=== PATIENT | male | born 1985 | race Two or more races ===

== ENCOUNTER 2021-09-26 09:15 | Emergency (ER) | payer BC, OTHER ==
[~2021-09-26] VITALS: Ht 170.2 cm; Wt 113.4 kg
[2021-09-26 14:14] VITALS: BP 110/72
[2021-09-26] MEDS ORDERED: CYCL-837 PO (14:25)
[2021-09-26] MEDS ORDERED: IBUP800T27 PO (14:25)
== END 2021-09-26 14:36 | disposition home or self-care (01) ==
LOC: ER 09:15
DX: S16.1XXA Strain of muscle, fascia and tendon at neck level, initial encounter (principal); S90.32XA Contusion of left foot, initial encounter; S70.02XA Contusion of left hip, initial encounter; S00.81XA Abrasion of other part of head, initial encounter; M50.21 Other cervical disc displacement, high cervical region; V28.4XXA Motorcycle driver injured in noncollision transport accident in traffic accident, initial encounter; Y93.89 Activity, other specified; Y92.89 Other specified places as the place of occurrence of the external cause; Y99.8 Other external cause status
CPT/HCPCS: 70450; 72125; 72192; 73630